=== PATIENT | female | born 1995 | race Caucasian/White ===

== ENCOUNTER → 2019-02-18 01:05 | Observation (INO) ==
[2019-02-17 22:53] LABS: Bilirubin,Urine Negative (Negative); Blood,Urine Negative (Negative); Clarity,Urine Cloudy (Clear); Color,Urine Yellow (Yellow); Glucose,Urine (UA) 100 mg/dL (Normal); Ketones,Urine Negative (Negative); Leukocyte Esterase,Urine Large (Negative); Nitrite,Urine Negative (Negative); Protein,Urine Negative (Neg-Trace); Specific Gravity,Urine 1.007 (1.010-1.025); Urobilinogen,Urine Normal (Normal)
[2019-02-17 22:54] LABS: Bacteria,Urine Many per hpf (None-Few); Hyaline Casts,Urine None Seen per lpf (None-Few); RBC,Urine 0-3 per hpf (0-3); Squamous Epithelial Cell,Urine Many per lpf (None-Few); WBC,Urine TNTC per hpf (0-3)
[2019-02-17 23:03] LABS: Amphetamine Screen,Urine Negative ng/mL (Cutoff=1000); Barbiturate Screen,Urine Negative ng/mL (Cutoff=200); Benzodiazepines Screen,Urine Negative ng/mL (Cutoff=200); Cannabinoid Screen,Urine Negative ng/mL (Cutoff = 50); Cocaine Screen,Urine Negative ng/mL (Cutoff= 300); Opiate Screen,Urine Negative ng/mL (Cutoff=300); Phencyclidine Screen,Urine Negative ng/mL (Cutoff=25)
--- NOTE | 2019-02-18 01:01 | OB/GYN Progress Note ---
Date of Encounter: 02/18/19 Time of Encounter: 01:01 - Assessment and Plan (1) 36 weeks gestation of Current Visit: Yes Status: Acute (2) labor in third trimester without delivery Current Visit: No Status: Acute No change on serial cervical exams. Discharged home with labor and when to return to triage precautions. Patient verbalizes understanding Subjective - Subjective Interval history: 36+ weeks gestation presents to triage with complaints of contractions. Patient states yesterday afternoon went to [facility] with contractions. Was observed from 1 PM to 6 PM with no cervical change patient states she was 4-5 cm on discharge. Patient states she is felt like she was in labor on to come here for another evaluation. Patient with a history of labor was 5 cm on last exam at [place] on 01/25. Reports good movement, denies vaginal bleeding or leaking of fluid. Antepartum ROS: movement normal, contractions, no loss of fluid, no vaginal bleeding Objective - Vital Signs Vital Signs: Intake and Output 02/17/19 02/17/19 02/18/19 15:59 23:59 07:59 Other: Weight 64.1 kg - Exam FHR: auscultation normal FHR comments: Baseline 125 Abdomen: Present: soft, gravid Cervical dilation: 4-5/90/-1 per RN - Labs Labs: Abnormal lab results Cloudy (Clear) A 02/17/19 22:35 Ur Specific [place] 1.007 (1.010-1.025) L 02/17/19 22:35 100 mg/dL (Normal) H 02/17/19 22:35 Ur Leukocyte Esterase Large (Negative) H 02/17/19 22:35 TNTC per hpf (0-3) H 02/17/19 22:35 Ur Squamous Epith Cells Many per lpf (None-Few) H 02/17/19 22:35 Many per hpf (None-Few) H 02/17/19 22:35 Ur Culture Indicated? YES (NO) A 02/17/19 22:35
[~2019-02-18 01:05] MED LIST: Famotidine 20 MG TABLET PO ONE; Ringers Solution, Lactated 1,000 ML IVC ONE; Ringers Solution, Lactated 1,000 ML IVC SCH; Ringers Solution, Lactated 1,000 ML ONE
== END | disposition home or self-care (01) ==
LOC: 1NENULAB
PROVIDERS: ADMIT Advanced Practice Midwife; ATTEND Advanced Practice Midwife